=== PATIENT | female | born 1950 | race Caucasian/White ===

== ENCOUNTER → 2017-05-26 | Outpatient (CLI) | payer OTHER ==
--- NOTE | 2017-05-26 13:10 | KCIC ---
Single view chest and right-sided rib study dated 05/26/2017. No comparison available. Clinical indication: Pain after injury. Bruising. Injury 3 days ago. FINDINGS: Single upright view of the chest shows normal heart and mediastinal contours. Lungs are clear without focal consolidation. Minimal linear opacity at both lung bases, likely scar or atelectasis. No consolidation or pleural effusion. No pneumothorax. Dedicated views of right sided ribs show no evidence of displaced right rib fracture. No acute bony abnormality. IMPRESSION: 1. No acute radiographic abnormality. No evidence of displaced right rib fracture. 2. Mild linear bibasilar opacity, likely atelectasis. Electronically signed by: Sukhdeep Colon MD (05/26/2017 1:07 PM) [id number]
== END | disposition home or self-care (01) ==
LOC: KCIC 11:31
PROVIDERS: ATTEND Nurse Practitioner Family
DX: S29.8XXD Other specified injuries of thorax, subsequent encounter (principal); X58.XXXD Exposure to other specified factors, subsequent encounter
CPT/HCPCS: 71101